=== PATIENT | female | born 1960 | race Caucasian/White ===

== ENCOUNTER 2024-10-17 09:53 | Emergency (ER) | payer OTHER, BC ==
[2024-10-17 10:14] VITALS: BP 148/94; PULSE 92
== END 2024-10-17 12:10 ==
LOC: VM.ED 09:53
DX: S52.502A Unspecified fracture of the lower end of left radius, initial encounter for closed fracture (principal); I10 Essential (primary) hypertension; E78.00 Pure hypercholesterolemia, unspecified; E11.9 Type 2 diabetes mellitus without complications; Z79.82 Long term (current) use of aspirin; Z79.84 Long term (current) use of oral hypoglycemic drugs; Z79.899 Other long term (current) drug therapy; W00.0XXA Fall on same level due to ice and snow, initial encounter
CPT/HCPCS: 29125; 72220; 73090-LT; 99283-25